=== PATIENT | female | born 1980 | race Caucasian/White ===

== ENCOUNTER 2021-08-30 21:05 | Emergency (ER) | payer OTHER ==
[~2021-08-30] VITALS: Ht 162.6 cm; Wt 63.5 kg
[2021-08-30 21:05] VITALS: BP 160/94
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
--- NOTE | 2021-08-30 21:23 | NUR ---
PT BROUGHT TO BED 9 VIA JORGE
--- NOTE | 2021-08-31 00:58 | NUR ---
XRAY AT BEDSIDE
[2021-08-31] MEDS ORDERED: IBUPROFEN 800 MG TAB PO ONE (01:00)
--- NOTE | 2021-08-31 07:01 | NUR ---
PT STATES SHE DOES NOT WANT TO FILE A REPORT WITH PD AND WOULD RATHER CONTACT A EXPLOSIVE EXPERT ON HER OWN TIME.
--- NOTE | 2021-08-31 07:01 | NUR ---
RADIOLOGY CONTACTED CONCERNING XRAY DICTATION PROGRESS.
[2021-08-31] MEDS ORDERED: IBUP-2213 PO (07:19)
--- NOTE | 2021-08-31 07:20 | NUR ---
REPORT GIVEN TO OLU HOLLEY AND ABY CHAND
--- NOTE | 2021-08-31 07:21 | NUR ---
RECEIVED REPORT FROM JAGRUTI CASAREZ. TRANSFER OF CARE AT THIS TIME.
--- NOTE | 2021-08-31 07:21 | NUR ---
Recieved report from Massimo CHAND, transfer of care
[2021-08-31] MEDS ORDERED: ATA25 PO (07:34)
--- NOTE | 2021-08-31 07:40 | NUR ---
PATIENT STABLE IN BED AT THIS TIME, WATER WAS GIVEN
--- NOTE | 2021-08-31 07:55 | NUR ---
Patient discharged with v/s stable. Written and verbal after care instructions given on acute back pain and cervical sprain and explained. Patient alert, oriented and verbalized understanding of instructions. Ambulatory with steady gait. All questions addressed prior to discharge. ID band removed. Patient advised to follow up with PMD. Rx of Ibuprofen given.
[2021-08-31 07:58] VITALS: BP 126/78
--- NOTE | 2021-08-31 08:04 | NUR ---
The patient's care was reviewed and supervised by Belén Loo RN.
== END 2021-08-31 07:55 | disposition home or self-care (01) ==
LOC: MED 21:05
DX: M54.6 Pain in thoracic spine (principal); M54.50 Low back pain, unspecified; M25.561 Pain in right knee; K21.9 Gastro-esophageal reflux disease without esophagitis; Z98.890 Other specified postprocedural states; Z79.899 Other long term (current) drug therapy
CPT/HCPCS: 72050; 72072; 72110; 93005; 99285

== ENCOUNTER 2021-11-03 | Emergency (ER) | payer OTHER ==
[~2021-11-03] VITALS: Ht 162.6 cm; Wt 53.1 kg
[~2021-11-03] MED LIST: ATA25 PO; IBUP-2213 PO
[2021-11-03 00:30] VITALS: BP 113/73
--- NOTE | 2021-11-03 00:35 | NUR ---
pt taken to lobby.
== END 2021-11-03 02:41 | disposition left against medical advice (07) ==
LOC: MED
DX: R51.9 Headache, unspecified (principal); Z53.21 Procedure and treatment not carried out due to patient leaving prior to being seen by health care provider; Z88.8 Allergy status to other drugs, medicaments and biological substances; Z88.0 Allergy status to penicillin